=== PATIENT | male | born 1975 | race Caucasian/White ===

== ENCOUNTER 2020-05-04 04:06 | Emergency (ER) | payer BC, SELFPAY ==
[2020-05-04 04:27] VITALS: BP 153/103; PULSE 103; RESP 16; TEMP 37; O2SAT 95; BMI 36.3
--- NOTE | 2020-05-04 04:29 | CT_ITS ---
EXAMINATION: CT CHEST WITHOUT CONTRAST CLINICAL INFORMATION: Shortness of breath, rule out right rib fracture COMPARISON: 08/29/2018 TECHNIQUE: Multidetector volumetric CT imaging of the chest was done. Axial MIP volume rendering provided. Sagittal and coronal reformatted images were obtained. This CT examination was performed using dose optimization techniques as appropriate, variously including the following: *Automated exposure control *Adjustment of mA and/or kV according to patient size (this includes techniques or standardized protocols for targeted exams where dose is matched to indication/reason for exam; i.e. extremities or head) *Use of iterative reconstruction technique DLP: 407 mGy-cm FINDINGS: LUNGS: No regions of consolidation bilaterally. There is a stable 3 mm left upper lobe nodule on image [id number] laterally, statistically likely benign. A few right fissural nodules are favored to reflect lymph nodes. MEDIASTINUM: The visualized thyroid gland is unremarkable. Redemonstration of multiple subcentimeter mediastinal lymph nodes without enlargement by size criteria. Cardiac size is within normal limits; no pericardial effusion. Coronary artery calcifications are present. PLEURA: Trace right pleural effusion. No pneumothorax. AXILLA: No lymphadenopathy. UPPER ABDOMEN: Redemonstrated subcentimeter hypodensity in the liver near the falciform ligament, suggestive of a cyst. OSSEOUS STRUCTURES: There is an acute nondisplaced lateral right ninth rib fracture. Several chronic-appearing rib deformities bilaterally favor healed old fractures. There are severe degenerative changes of the bilateral glenohumeral joints. CT/CT chest wo con IMPRESSION: 1. Nondisplaced lateral right ninth rib fracture. 2. Trace right pleural effusion. 3. Several chronic-appearing bilateral rib deformities favoring healed old fractures.
[2020-05-04] MEDS: Acetaminophen 325 MG TABLET 975 MG PO (04:56)
[2020-05-04] MEDS: Ketorolac Tromethamine 15 MG/ML VIAL IM (04:56)
--- NOTE | 2020-05-04 05:03 | PC.NURSE ---
Patient back from imaging. Medicated per emar as noted.
--- NOTE | 2020-05-04 05:45 | ED_ITS ---
HPI - General Adult General Chief complaint: Dyspnea Stated complaint: broken rib,diff breathing Time Seen by Provider: 05/04/20 04:29 Source: patient Mode of arrival: ambulatory Limitations: no limitations History of Present Illness HPI narrative: this is a 44-year-old male who presents 2 days after stating that he was leaning over the edge of the porch railing with the patient placement coordinator and states that that is when he broke his right rib and since that time he has had increasing shortness of breath. He denies any fevers, chills. Related Data Previous Rx's Medication Instructions Recorded ketorolac 10 mg PO Q6H 5 Days #20 tab 05/04/20 Allergies Allergy/AdvReac Type Severity Reaction Status Date / Time No Known Allergies Allergy Verified 05/04/20 04:40 [No Known Allergies*] Review of Systems Review of Systems: the positives and negatives as stated in HPI 10 point review of systems is otherwise negative PMFSH Past Medical History Source: nursing notes reviewed Medical History Hypertension Social History Social History Alcohol intake: current Alcohol intake frequency: a few times a week Smoking Status: Never smoker Use of substances other than those prescribed or required for medical reasons: No Advance Directives: No Physical Exam Vital Signs: Vital Signs: Last Vital Signs Temp 98.6 F 05/04/20 04:27 Pulse 103 H 05/04/20 04:27 Resp 16 05/04/20 04:27 BP 153/103 H 05/04/20 04:27 Pulse Ox 95 05/04/20 04:27 Body Mass Index 36.3 VITAL SIGNS: Reviewed. GENERAL: Well developed, well nourished, in no acute distress. HEAD: Normocephalic/atraumatic, EYES: PERRLA, EOMI intact without pain, no nystagmus/pallor/icterus noted EARS: Ext canals without abnormality, TMs non-bulging and non-erythematous NOSE: Nares patent bilateral OROPHARYNX: no oral lesions noted, posterior pharynx clear and non-erythematous without noted tonsillar enlargement/erythema/exudates NECK: Supple, no adenopathy LUNGS: Normal breath sounds. No adventitious sounds or accessory muscle use. SpO2<95> CHEST WALL: Focal tenderness at approximately the 9th mid axillary rib without crepitus or ecchymosis CARDIOVASCULAR: Regular rate and rhythm without noted murmurs, no JVD or lower extremity edema. ABDOMEN: Soft, non-tender, non-distended with bowel sounds. No rigidity. No guarding. No palpable masses or hernias noted MUSCULOSKELETAL: No tenderness, deformities, or effusions noted on gross inspection. EXTREMITIES: No cyanosis, clubbing or edema. SKIN: Inspection of the skin reveals no rashes, ulcerations, jaundice, pallor, or petechiae. NEUROLOGIC: Alert and oriented x 4. Strength and sensation to light touch were grossly intact x 4. Course Course Course Narrative: This is a 44-year-old male with history and clinical presentation consistent with rib fracture which was further demonstrated on CT scan showing a nondisplaced 9th rib fracture and trace pleural fluid but no pneumothorax. Patient was provided with combination analgesics as well as a Lidoderm patch and will be discharged in stable condition with an incentive spirometer and recommendation to follow up with his primary care provider. Discharge Plan Discharge Clinical Impression: Closed rib fracture Qualifiers: Encounter type: initial encounter Rib fracture type: single rib Laterality: right Qualified Code(s): S22.31XA - Fracture of one rib, right side, initial encounter for closed fracture Patient Disposition: Home, Self-Care Instructions: How to Use an Incentive Spirometer (ED), Rib Fracture (ED) Additional Instructions: 1. Tylenol 1000 mg, orally, every 6 hours as needed for pain control. 2. lidocaine patch, these are available in every [facility]/ [facility], apply to area of maximal tenderness as directed on the outside packaging. 3. You should use incentive spirometer 10 times every hour to prevent developing a pneumonia. Prescriptions: New ketorolac 10 mg tablet 10 mg PO Q6H 5 Days Qty: 20 RF: 0 Referrals: Sarah Meza NP [Primary Care Provider] - 2 days ( re-evaluation for nondisplaced right 9th rib fracture.)
[2020-05-04 06:00] VITALS: BP 144/100; O2SAT 96
[2020-05-04] MEDS: Lidocaine 4 % Patch ADH..PATCH 1 PATCH TRANSDERMA (06:08)
== END 2020-05-04 06:26 | disposition home or self-care (01) ==
PROVIDERS: Emergency Provider Student in an Organized Health Care Education/Training Program; PCP Nurse Practitioner Family
DX: S22.31XA Fracture of one rib, right side, initial encounter for closed fracture (principal); W17.89XA Other fall from one level to another, initial encounter; I10 Essential (primary) hypertension; Y93.89 Activity, other specified; Y92.018 Other place in single-family (private) house as the place of occurrence of the external cause; Y99.9 Unspecified external cause status
CPT/HCPCS: 71250; 96372; 99284; J1885

== ENCOUNTER 2021-03-02 18:29 | Emergency (ER) | payer BC, SELFPAY ==
[2021-03-02 18:56] VITALS: BP 148/88; PULSE 98; RESP 16; TEMP 37.2; O2SAT 97; BMI 40.3
--- NOTE | 2021-03-02 19:03 | ED.OVERDOSE ---
HPI - Overdose General Chief Complaint: Overdose Stated Complaint: overdose Time Seen by Provider: 03/02/21 18:58 Source: patient Mode of arrival: EMS Limitations: no limitations History of Present Illness HPI Narrative: Patient was found cyanotic and unresponsive in his truck had few drinks earlier says that he did not use any drugs but patient's pupil was pinpoint and received 8 mg of Narcan now is alert awake saturating 97% at room air denies any IV drug or prescription medicine Related Data Previous Rx's Medication Instructions Recorded ketorolac 10 mg tablet 10 mg PO Q6H 5 Days #20 tab 05/04/20 Allergies Allergy/AdvReac Type Severity Reaction Status Date / Time No Known Allergies Allergy Verified 05/04/20 04:40 [No Known Allergies*] Review of Systems Review of Systems: Yes all other systems are reviewed and are negative [facility] Past Medical History Medical History Hypertension Social History Social History Alcohol intake: current Alcohol intake frequency: a few times a week Advance Directives: No Advance Directives Information Provided: No Physical Exam Vital Signs: Vital Signs: Last Vital Signs Temp 98.9 F 03/02/21 18:56 Pulse 98 03/02/21 18:56 Resp 16 03/02/21 18:56 BP 148/88 H 03/02/21 18:56 Pulse Ox 97 03/02/21 18:56 Body Mass Index 40.3 Appearance: Alert. Oriented X3. No acute distress. Eyes: PERRLA, No Nystagmus HEENT: Pharynx normal. Oral Mucosa moist atraumatic normocephalic Neck: Normal inspection. Neck supple. CVS: Normal heart rate and rhythm. Pulses normal. Respiratory: No respiratory distress. Equal air entry bilateral, no wheezing/rales/rhonchi Abdomen: Soft and nontender. Bowel sounds are present, no mass palpable, no CVA tenderness Skin: Skin warm and dry. Normal skin color. Normal skin turgor. Extremities: No lower extremity edema. No calf tenderness Neuro: Oriented X 3. No motor deficit. No sensory deficit.No cerebellar signs , cranial nerves II-XII intact MDM - Overdose MDM Narrative Medical decision making narrative: Patient with likely opiate use refused to give the urine sample diffuse any help, will discharge him home with family, patient is saturating 98% on room air Discharge Plan Discharge Clinical Impression: Substance abuse Patient Disposition: Home, Self-Care Instructions: Polysubstance Abuse (ED) Additional Instructions: Do not drink alcohol or take opiates follow up with detox Prescriptions: No Action ketorolac 10 mg tablet 10 mg PO Q6H 5 Days Qty: 20 RF: 0
[2021-03-02 20:00] VITALS: BP 118/59; PULSE 79; RESP 16; TEMP 36.3; O2SAT 95
--- NOTE | 2021-03-02 20:23 | PC.NURSE ---
pt a&O, no sob or chest pain. Security in with patient and assisting with belongings. Sister Ming here to case picker patient.
== END 2021-03-02 20:25 | disposition home or self-care (01) ==
PROVIDERS: Emergency Provider Internal Medicine; PCP Nurse Practitioner Family
DX: T40.1X1A Poisoning by heroin, accidental (unintentional), initial encounter (principal); Y92.9 Unspecified place or not applicable
CPT/HCPCS: 99283